=== PATIENT | female | born 1985 | race Two or more races ===

== ENCOUNTER 2018-06-11 23:38 | Inpatient (IN) | payer OTHER ==
[2018-06-12 00:03] VITALS: BMI 18.1
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
[2018-06-12] MEDS ORDERED: NICOTINE POLACRILEX 2 MG GUM BC PRN (00:21)
[2018-06-12] MEDS ORDERED: P-EPHED 60MG/TRIPROLIDI 2.5MG TABLET PO PRN (00:21)
[2018-06-12] MEDS ORDERED: chlordiazePOXIDE HCL 25 MG CAPSULE PO PRN (00:21)
[2018-06-12] MEDS ORDERED: guaiFENesin/D-METHORPHAN HB 10 ML UNIT-DOSE CUPS PO PRN (00:21)
[2018-06-12] MEDS ORDERED: LOPERAMIDE HCL 2 MG CAPSULE PO PRN (00:21)
[2018-06-12] MEDS ORDERED: IBUPROFEN 400 MG TABLET (FP) PO PRN (00:21)
[2018-06-12] MEDS ORDERED: MENTHOL/PHENOL 1 EACH UD MM PRN (00:21)
[2018-06-12] MEDS ORDERED: ACETAMINOPHEN 325 MG TABLET (FP) PO PRN (00:21)
[2018-06-12] MEDS ORDERED: MAG HYDROX/AL HYDROX/SIMETH 30 ML UNIT-DOSE CUP PO PRN (00:21)
[2018-06-12] MEDS ORDERED: MAGNESIUM HYDROX 2400MG/30ML ORAL SUSPENSION 30 ML CUP PO PRN (00:21)
[2018-06-12] MEDS ORDERED: MAGNESIUM CITRATE 300 ML BOTTLE PO PRN (00:21)
[2018-06-12] MEDS: chlordiazePOXIDE HCL 25 MG CAPSULE PO SCH ×4 (05:24→22:12)
--- NOTE | 2018-06-12 07:48 | CONSULT ---
[facility] Psychiatric Consult - Data Date of interview: 06/12/18 Admission source: [facility] Identifying data: 32 Y.O. FEMALE WITH HX/O ALCOHOLISM SINCE THE AGE OF 22 HEAR FOR DETOX. CLIENT REPORTS THIS HER FIRST ATTEMPT TO INPATIENT TXMENT AFTER FAILED ATTEMPTS TO SELF DETOX. LAST ATTEMPT BEING 11 MONTHS AGO. REPORTS LONGEST CLEAN TIME 42 DAYS Jul. SHE WAS REFERRED BY [facility] AFTER PRESENTING THERE FOR A [facility] REHAB. SHE PRESENTS WITH C/O WITHDRAWAL SX'S; CIWA 15. DENIES HX/O SEIZURES, AVH, SI/HI. DOES REPORTS HX/O BLACKOUTS. UTOX + TADEO, THC, BAR CLIENT DENIES USE. STATES IT WAS A ONE TIME THING RECENTLY AT A [employer] WITH "JOHANNA". PMHX- GERD Substance Abuse History: - Smoking Cessation. Smoking history: Current every day smoker. Have you smoked in the past 12 months: Yes. Aproximately how many cigarettes per day: 10. Cigars Per Day: 0. Hx Chewing Tobacco Use: No. Initiated information on smoking cessation: Yes. 'Breaking Loose' booklet given : 06/12/18. - Substance & Tx. History. Hx Alcohol Use: Yes. Hx Substance Use : Yes. Substance Use Type: Alcohol. Hx Substance Use Treatment: No. - Substances Abused. COGNAC. Route: Oral. Frequency: Daily. Amount used: 1 LITER TO A GALLON. Age of first use: 22. Date of Last Use: 06/10/18 Medical History: GERD Psychiatric History: Patent reports no psychiatric hospitalization history, homhisturyt of sucidal,julissa,icidalideations., no psychiatrioric medicstions taking prior to admission. Physical/Sexual Abuse/Trauma History: Denies Additional Comment: Observation Mental Status Exam - Mental Status Exam Alert and Oriented to: Person Cognitive Function: Fair Patient Appearance: Unkempt Mood: Sad Affect: Normal Range Patient Behavior: Cooperative Speech Pattern: Appropriate Voice Loudness: Normal Thought Process: Goal Oriented Thought Disorder: Being Controlled Hallucinations: Denies Suicidal Ideation: Denies Homicidal Ideation: Denies Insight/Judgement: Fair Sleep: Difficulty falling asleep Appetite: Fair Muscle strength/Tone: Mild Hypotonicity Gait/Station: Normal Additional Comments: Observation. Detox Unit Care Protocol Psychiatric Findings - Problem List ([place] 1, 2,3) (1) Alcohol dependence with uncomplicated withdrawal Current Visit: Yes Status: Acute (2) GERD (gastroesophageal reflux disease) Current Visit: Yes Status: Chronic Qualifiers: Esophagitis presence: esophagitis presence not specified Qualified Code(s) : K21.9 - Gastro-esophageal reflux disease without esophagitis (3) History of depression Current Visit: Yes Status: Chronic (4) Nicotine dependence Current Visit: Yes Status: Chronic Qualifiers: Nicotine product type: cigarettes Substance use status: uncomplicated Qualified Code(s): F17.210 - Nicotine dependence, cigarettes, uncomplicated (5) Substance induced mood disorder Current Visit: Yes Status: Suspected - Initial Treatment Plan Initial Treatment Plan: Observation. Detox Unit Care Protocol
--- NOTE | 2018-06-12 10:13 | PN ---
[facility] CIWA - CIWA Score Nausea/Vomitin Muscle Tremors: 1-None Visible, but [place] Anxiety: 1-Mildly Anxious Agitation: 1-Slight > Activity Paroxysmal Sweats: 1-Minimal Palms Moist Orientation: 0-Oriented Tacttile Disturbances: 0-None Auditory Disturbances: 0-None Visual Disturbances: 0-None Headache: 0-None Present CIWA-Ar Total Score: 6 BHS Progress Note (SOAP) Subjective: Pt states her "stomach feels sour" Obj: Vital Signs - 24 hr 06/11/18 06/12/18 06/12/18 23:57 00:40 03:52 Temperature 98.1 F 98.4 F Pulse Rate 98 H 80 Respiratory 18 16 18 Rate Blood Pressure 126/81 94/74 06/12/18 06/12/18 06:00 09:55 Temperature 97.9 F 98.1 F Pulse Rate 74 86 Respiratory 16 16 Rate Blood Pressure 113/73 101/57 L a/p: alcohol use disorder, continue detox protocol, d/w pt options for prn meds if needed for withdrawal Sx
[2018-06-12 10:15] LABS: HEMATOCRIT 42.5 % (32.4-45.2); HEMOGLOBIN 13.8 GM/dL (10.7-15.3); MCH 32.7 pg (25.7-33.7); MCHC 32.5 g/dl (32.0-36.0); MEAN CELL VOLUME 100.6 fl (80-96); MEAN PLT VOLUME 8.1 fl (7.5-11.1); PLATELET COUNT 281 K/MM3 (134-434); RBC 4.23 M/mm3 (3.60-5.2); RDW 13.1 % (11.6-15.6); WHITE BLOOD COUNT 8.1 K/mm3 (4.0-10.0)
[2018-06-12 10:22] LABS: ALBUMIN 3.2 g/dl (3.4-5.0); ALK PHOS 73 U/L (45-117); ANION GAP 9 MMOL/L (8-16); BILIRUBIN,TOTAL 0.8 mg/dL (0.2-1); BLOOD UREA NITROGEN 6 mg/dL (7-18); CALCIUM 8.2 mg/dL (8.5-10.1); CHLORIDE 103 mmol/L (98-107); CO2 27 mmol/L (21-32); CREATININE 0.5 mg/dL (0.55-1.3); GLUCOSE,RANDOM 100 mg/dL (74-106); POTASSIUM 3.5 mmol/L (3.5-5.1); SGOT/AST 16 U/L (15-37); SGPT/ALT 21 U/L (13-61); SODIUM 139 mmol/L (136-145); TOT PROT 6.5 g/dl (6.4-8.2)
[2018-06-12] MEDS: PRENATAL VITAMINS W/ FOLIC ACID TABLET (FP) PO SCH (10:29)
[2018-06-12] MEDS: NICOTINE 14 MG/24 HOURS TOPICAL PATCH TD SCH (10:30)
--- NOTE | 2018-06-12 11:38 | EKG ---
Test Reason : Blood Pressure : / mmHG Vent. Rate : 076 BPM Atrial Rate : 083 BPM P-R Int : 112 ms QRS Dur : 086 ms QT Int : 392 ms P-R-T Axes : 062 075 044 degrees QTc Int : 441 ms NORMAL SINUS RHYTHM WITH SINUS ARRHYTHMIA NORMAL ECG NO PREVIOUS ECGS AVAILABLE Confirmed by PHANI NUNEZ, WILLIAM ([id number]) on 06/12/2018 11:37:24 AM Referred By: CAROLINE GILLILAND Confirmed By:WILLIAM JERONIMO MD
[2018-06-12] MEDS: ONDANSETRON *ODT* 4 MG TABLET SL PRN ×2 (13:13→22:13)
[2018-06-12 17:41] LABS: URINE APPEARANCE TURBID; URINE COLOR AMBER; URINE GLUCOSE (UA) NEGATIVE (NEGATIVE); URINE KETONE NEGATIVE (NEGATIVE); URINE LEUK ESTERASE NEGATIVE (NEGATIVE); URINE NITRITE NEGATIVE (NEGATIVE); URINE PROTEIN 1+ (NEGATIVE); URINE UROBILINOGEN 4.0 E.U/dl mg/dL (0.2-1.0)
[2018-06-12 17:45] LABS: EPI CELLS MANY /HPF (FEW); URINE BACTERIA RARE /hpf (NONE SEEN); URINE MUCUS MANY
[2018-06-12] MEDS ORDERED: MELATONIN 5 MG TABLETS PO PRN (22:00)
[2018-06-12] MEDS: THIAMINE HCL 100 MG TABLET (FP) PO SCH (22:12)
[2018-06-13] MEDS: chlordiazePOXIDE HCL 25 MG CAPSULE PO SCH ×4 (06:04→22:44)
[2018-06-13] MEDS: PRENATAL VITAMINS W/ FOLIC ACID TABLET (FP) PO SCH (10:43)
[2018-06-13] MEDS: NICOTINE 14 MG/24 HOURS TOPICAL PATCH TD SCH (10:43)
[2018-06-13] MEDS: ONDANSETRON *ODT* 4 MG TABLET SL PRN ×2 (10:44→20:45)
[2018-06-13] MEDS ORDERED: valACYclovir HCL 500 MG TABLET (FP) PO ONE (12:01)
--- NOTE | 2018-06-13 12:01 | PN ---
[facility] CIWA - CIWA Score Nausea/Vomitin-Mild Nausea/No Vomiting Muscle Tremors: 3 Anxiety: 2 Agitation: 2 Paroxysmal Sweats: 1-Minimal Palms Moist Orientation: 0-Oriented Tacttile Disturbances: 0-None Auditory Disturbances: 0-None Visual Disturbances: 0-None Headache: 0-None Present CIWA-Ar Total Score: 9 S Progress Note (SOAP) Subjective: i have am having an outbreak on my lower lip, it stings and is painful sweats nausea Objective: 06/13/18 12:01 Vital Signs Temperature 98.1 F 06/13/18 09:39 Pulse Rate 108 H 06/13/18 09:39 Respiratory Rate 18 06/13/18 09:39 Blood Pressure 100/77 06/13/18 09:39 O2 Sat by Pulse Oximetry (%) Laboratory Tests 06/12/18 06/12/18 06/12/18 07:00 07:00 07:00 WBC 8.1 RBC 4.23 Hgb 13.8 Hct 42.5 MCV 100.6 H MCH 32.7 MCHC 32.5 RDW 13.1 Plt Count 281 MPV 8.1 Sodium 139 Potassium 3.5 Chloride 103 Carbon Dioxide 27 Anion Gap 9 BUN 6 L Creatinine 0.5 L Creat Clearance w eGFR > 60 Random Glucose 100 Calcium 8.2 L Total Bilirubin 0.8 AST 16 ALT 21 Alkaline Phosphatase 73 Total Protein 6.5 Albumin 3.2 L Urine Color Urine Appearance Urine pH Ur Specific [place] Urine Protein Urine Glucose (UA) Urine Ketones Urine Blood Urine Nitrite Urine Bilirubin Urine Urobilinogen Ur Leukocyte Esterase Urine WBC (Auto) Urine RBC (Auto) Ur Epithelial Cells Urine Bacteria Urine Mucus RPR Titer Nonreactive 06/12/18 13:40 WBC RBC Hgb Hct MCV MCH MCHC RDW Plt Count MPV Sodium Potassium Chloride Carbon Dioxide Anion Gap BUN Creatinine Creat Clearance w eGFR Random Glucose Calcium Total Bilirubin AST ALT Alkaline Phosphatase Total Protein Albumin Urine Color [place] Urine Appearance Turbid Urine pH 8.0 Ur Specific [place] 1.023 Urine Protein 1+ H Urine Glucose (UA) Negative Urine Ketones Negative Urine Blood Negative Urine Nitrite Negative Urine Bilirubin 2.0 Urine Urobilinogen 4.0 e.u/dl H Ur Leukocyte Esterase Negative Urine WBC (Auto) 18 Urine RBC (Auto) 2 Ur Epithelial Cells Many Urine Bacteria Rare Urine Mucus Many RPR Titer aaox3 ambulating no acute distress Assessment: 11/15/18 12:01 withdrawal sx visible cold sore noted to lower lip Plan: continue detox increase fluids valtrex 1000mg x one then 500mg bid x 3 days ordered
[2018-06-13] MEDS: THIAMINE HCL 100 MG TABLET (FP) PO SCH (22:44)
[2018-06-13] MEDS: valACYclovir HCL 500 MG TABLET (FP) PO SCH (22:44)
[2018-06-14] MEDS: chlordiazePOXIDE 5 MG CAPSULE PO SCH ×3 (06:16→18:05)
[2018-06-14] MEDS: ONDANSETRON *ODT* 4 MG TABLET SL PRN ×2 (06:18→15:29)
[2018-06-14] MEDS: PRENATAL VITAMINS W/ FOLIC ACID TABLET (FP) PO SCH (10:43)
[2018-06-14] MEDS: valACYclovir HCL 500 MG TABLET (FP) PO SCH (10:43)
[2018-06-14] MEDS: NICOTINE 14 MG/24 HOURS TOPICAL PATCH TD SCH (10:45)
[2018-06-14] MEDS ORDERED: COLLOIDAL OATMEAL 1 BAR EACH TP PRN (12:11)
--- NOTE | 2018-06-14 12:20 | PN ---
[facility] Progress Note (SOAP) Subjective: agitation sweats interrupted sleep dry skin Objective: 06/14/18 12:20 Vital Signs Temperature 97.9 F 06/14/18 09:44 Pulse Rate 99 H 06/14/18 09:44 Respiratory Rate 16 06/14/18 09:44 Blood Pressure 104/64 06/14/18 09:44 O2 Sat by Pulse Oximetry (%) aaox3 ambulating no acute distress Assessment: 06/14/18 12:27 withdrawal sx Plan: continue detox increase fluids d/c in am
--- NOTE | 2018-06-14 15:50 | PN ---
[facility] Progress Note Note: pt has a rehab bed in [facility]. pt will be d/c today. no s/s of withdrawal noted.
--- NOTE | 2018-06-14 15:52 | DS ---
[facility] Detox Discharge Summary Admission Date: 06/12/18 Discharge Date: 06/14/18 - History Present History: Alcohol Dependence - Physical Exam Results Vital Signs: Vital Signs Temperature 97.9 F 06/14/18 14:03 Pulse Rate 89 06/14/18 14:03 Respiratory Rate 16 06/14/18 14:03 Blood Pressure 111/76 06/14/18 14:03 O2 Sat by Pulse Oximetry (%) - Treatment Hospital Course: Detox Protocol Followed, Detoxed Safely, Responded well, Discharged Condition Good, Rehab Referral Accepted - Medication Discharge Medications: Ambulatory Orders NK [No Known Home Medication] 06/12/18 - Diagnosis (1) Alcohol dependence with uncomplicated withdrawal Current Visit: Yes Status: Chronic (2) At risk for dehydration due to poor fluid intake Current Visit: Yes Status: Acute (3) GERD (gastroesophageal reflux disease) Current Visit: Yes Status: Chronic Qualifiers: Esophagitis presence: esophagitis presence not specified Qualified Code(s) : K21.9 - Gastro-esophageal reflux disease without esophagitis (4) History of depression Current Visit: Yes Status: Chronic (5) Nicotine dependence Current Visit: Yes Status: Chronic Qualifiers: Nicotine product type: cigarettes Substance use status: uncomplicated Qualified Code(s): F17.210 - Nicotine dependence, cigarettes, uncomplicated (6) Substance induced mood disorder Current Visit: Yes Status: Suspected - AMA Did Patient Leave Against Medical Advice: No (referred to [facility])
[2018-06-14 16:37] VITALS: BP 121/80; PULSE 105; TEMP 97
[2018-06-15] MEDS ORDERED: chlordiazePOXIDE HCL 10 MG CAPSULE PO SCH (05:00)
== END 2018-06-14 18:07 | disposition other institution (70) | DRG 775 ==
LOC: YASAS 23:38 → Y6N 06-12 00:10
PROC: HZ2ZZZZ Detoxification Services for Substance Abuse Treatment (ICD-10-PCS; principal; 2018-06-12)
DX: F10.230 Alcohol dependence with withdrawal, uncomplicated (principal); F17.210 Nicotine dependence, cigarettes, uncomplicated; F19.24 Other psychoactive substance dependence with psychoactive substance-induced mood disorder; K21.9 Gastro-esophageal reflux disease without esophagitis; Z91.89 Other specified personal risk factors, not elsewhere classified; Z86.59 Personal history of other mental and behavioral disorders
CPT/HCPCS: 36415; 80053; 81003; 81015; 85027; 86593; 93005; 93010; Q0162

== ENCOUNTER 2018-06-14 16:26 | Inpatient (IN) | payer OTHER ==
--- NOTE | 2018-06-14 21:40 | HP ---
[facility] Rehab Assess/Revision - Admission History Admitted to Rehab from: [facility] Date of Admission to Rehab: 06/14/2018 - Vital signs Vital Signs: Vital Signs Temperature 97.0 F L 06/14/18 16:37 Pulse Rate 105 H 06/14/18 16:37 Respiratory Rate 18 06/14/18 16:37 Blood Pressure 121/80 06/14/18 16:37 O2 Sat by Pulse Oximetry (%) - Findings Detox History & Physical reviewed: Yes Concur with findings: Yes Inpatient Rehab Admission - Initial Determination Are CD services needed?: Yes Free of communicable disease: Yes Not in need of hospitalization: Yes - Rehab Admission Criteria Previous failed treatment: Yes Poor recovery environment: Yes Comorbidities: Yes Lacks judgement: No Patient is meeting Inpatient Rehab admission criteria:: Yes
[2018-06-14] MEDS ORDERED: LOPERAMIDE HCL 2 MG CAPSULE PO PRN (21:41)
[2018-06-14] MEDS ORDERED: ACETAMINOPHEN 325 MG TABLET (FP) PO PRN (21:41)
[2018-06-14] MEDS ORDERED: MAGNESIUM HYDROX 2400MG/30ML ORAL SUSPENSION 30 ML CUP PO PRN (21:41)
[2018-06-14] MEDS ORDERED: MENTHOL/PHENOL 1 EACH UD MM PRN (21:41)
[2018-06-14] MEDS ORDERED: MAGNESIUM CITRATE 300 ML BOTTLE PO PRN (21:41)
[2018-06-14] MEDS ORDERED: MELATONIN 5 MG TABLETS PO PRN (22:00)
[2018-06-14] MEDS: THIAMINE HCL 100 MG TABLET (FP) PO SCH (22:54)
[2018-06-14] MEDS: valACYclovir HCL 500 MG TABLET (FP) PO SCH (22:54)
[2018-06-15] MEDS: valACYclovir HCL 500 MG TABLET (FP) PO SCH ×2 (10:24→22:33)
[2018-06-15] MEDS: NICOTINE 7 MG/24 HOURS TOPICAL PATCH TD SCH (10:24)
[2018-06-15] MEDS: PRENATAL VITAMINS W/ FOLIC ACID TABLET (FP) PO SCH (10:25)
[2018-06-15] MEDS: hydrOXYzine PAMOATE 50 MG CAPSULE (FP) PO PRN ×2 (10:26→16:44)
[2018-06-15] MEDS ORDERED: ONDANSETRON *ODT* 4 MG TABLET SL ONE (12:39)
[2018-06-15] MEDS: THIAMINE HCL 100 MG TABLET (FP) PO SCH (22:33)
[2018-06-16] MEDS: hydrOXYzine PAMOATE 50 MG CAPSULE (FP) PO PRN (06:35)
[2018-06-16] MEDS: PRENATAL VITAMINS W/ FOLIC ACID TABLET (FP) PO SCH (09:49)
[2018-06-16] MEDS: NICOTINE 7 MG/24 HOURS TOPICAL PATCH TD SCH (09:49)
[2018-06-16] MEDS: valACYclovir HCL 500 MG TABLET (FP) PO SCH ×2 (09:49→22:11)
[2018-06-16] MEDS: MAG HYDROX/AL HYDROX/SIMETH 30 ML UNIT-DOSE CUP PO PRN (12:07)
[2018-06-16] MEDS: THIAMINE HCL 100 MG TABLET (FP) PO SCH (22:11)
[2018-06-16] MEDS: PANTOPRAZOLE 20 MG TABLET (FP) PO SCH (22:11)
[2018-06-17] MEDS: valACYclovir HCL 500 MG TABLET (FP) PO SCH ×2 (10:41→22:21)
[2018-06-17] MEDS: PRENATAL VITAMINS W/ FOLIC ACID TABLET (FP) PO SCH (10:41)
[2018-06-17] MEDS: NICOTINE 7 MG/24 HOURS TOPICAL PATCH TD SCH (10:42)
[2018-06-17] MEDS: PANTOPRAZOLE 20 MG TABLET (FP) PO SCH ×2 (10:42→22:21)
[2018-06-17] MEDS: NICOTINE POLACRILEX 2 MG GUM BUC PRN (10:44)
[2018-06-17] MEDS: hydrOXYzine PAMOATE 50 MG CAPSULE (FP) PO PRN ×2 (12:03→22:21)
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
[2018-06-17] MEDS: MAG HYDROX/AL HYDROX/SIMETH 30 ML UNIT-DOSE CUP PO PRN (17:48)
[2018-06-17] MEDS ORDERED: MELATONIN 5 MG TABLETS PO PRN (22:00)
[2018-06-17] MEDS: THIAMINE HCL 100 MG TABLET (FP) PO SCH (22:20)
[2018-06-17] MEDS: MELATONIN 3 MG, MELATONIN 5 MG PO SCH (22:21)
[2018-06-18] MEDS: hydrOXYzine PAMOATE 50 MG CAPSULE (FP) PO PRN (10:25)
[2018-06-18] MEDS: PANTOPRAZOLE 20 MG TABLET (FP) PO SCH ×2 (10:25→22:25)
[2018-06-18] MEDS: valACYclovir HCL 500 MG TABLET (FP) PO SCH ×2 (10:25→22:25)
[2018-06-18] MEDS: NICOTINE POLACRILEX 2 MG GUM BUC PRN ×3 (10:25→22:27)
[2018-06-18] MEDS: NICOTINE 7 MG/24 HOURS TOPICAL PATCH TD SCH (10:25)
[2018-06-18] MEDS: PRENATAL VITAMINS W/ FOLIC ACID TABLET (FP) PO SCH (10:25)
[2018-06-18] MEDS: THIAMINE HCL 100 MG TABLET (FP) PO SCH (22:25)
[2018-06-18] MEDS: MELATONIN 3 MG, MELATONIN 5 MG PO SCH (22:26)
[2018-06-19] MEDS: NICOTINE POLACRILEX 2 MG GUM BUC PRN ×3 (09:01→21:59)
[2018-06-19] MEDS: PRENATAL VITAMINS W/ FOLIC ACID TABLET (FP) PO SCH (10:17)
[2018-06-19] MEDS: NICOTINE 7 MG/24 HOURS TOPICAL PATCH TD SCH (10:17)
[2018-06-19] MEDS: PANTOPRAZOLE 20 MG TABLET (FP) PO SCH ×2 (10:17→21:57)
[2018-06-19] MEDS: valACYclovir HCL 500 MG TABLET (FP) PO SCH ×2 (10:18→21:57)
[2018-06-19] MEDS: hydrOXYzine PAMOATE 50 MG CAPSULE (FP) PO PRN ×3 (10:19→21:58)
[2018-06-19] MEDS ORDERED: PT OWN MED DRAWER 7, Y5N ONE (10:50)
[2018-06-19] MEDS: THIAMINE HCL 100 MG TABLET (FP) PO SCH (21:57)
[2018-06-19] MEDS: MELATONIN 3 MG, MELATONIN 5 MG PO SCH (21:57)
[2018-06-20] MEDS: PRENATAL VITAMINS W/ FOLIC ACID TABLET (FP) PO SCH (10:24)
[2018-06-20] MEDS: PANTOPRAZOLE 20 MG TABLET (FP) PO SCH ×2 (10:24→22:21)
[2018-06-20] MEDS: NICOTINE 7 MG/24 HOURS TOPICAL PATCH TD SCH (10:24)
[2018-06-20] MEDS: hydrOXYzine PAMOATE 50 MG CAPSULE (FP) PO PRN ×2 (10:26→22:21)
[2018-06-20] MEDS: NICOTINE POLACRILEX 2 MG GUM BUC PRN ×2 (18:02→22:22)
[2018-06-20] MEDS: MELATONIN 3 MG, MELATONIN 5 MG PO SCH (22:20)
[2018-06-20] MEDS: THIAMINE HCL 100 MG TABLET (FP) PO SCH (22:22)
[2018-06-21] MEDS: hydrOXYzine PAMOATE 50 MG CAPSULE (FP) PO PRN ×2 (10:21→21:55)
[2018-06-21] MEDS: PANTOPRAZOLE 20 MG TABLET (FP) PO SCH ×2 (10:21→21:55)
[2018-06-21] MEDS: NICOTINE 7 MG/24 HOURS TOPICAL PATCH TD SCH (10:21)
[2018-06-21] MEDS: PRENATAL VITAMINS W/ FOLIC ACID TABLET (FP) PO SCH (10:21)
[2018-06-21] MEDS: NICOTINE POLACRILEX 2 MG GUM BUC PRN ×2 (10:24→21:57)
[2018-06-21] MEDS ORDERED: PT OWN MED DRAWER 7, Y5N ONE (20:31)
[2018-06-21] MEDS: MELATONIN 3 MG, MELATONIN 5 MG PO SCH (21:55)
[2018-06-21] MEDS: THIAMINE HCL 100 MG TABLET (FP) PO SCH (21:55)
[2018-06-22] MEDS: hydrOXYzine PAMOATE 50 MG CAPSULE (FP) PO PRN ×2 (10:26→22:01)
[2018-06-22] MEDS: PRENATAL VITAMINS W/ FOLIC ACID TABLET (FP) PO SCH (10:26)
[2018-06-22] MEDS: PANTOPRAZOLE 20 MG TABLET (FP) PO SCH ×2 (10:27→22:01)
[2018-06-22] MEDS: NICOTINE 7 MG/24 HOURS TOPICAL PATCH TD SCH (10:27)
[2018-06-22] MEDS: NICOTINE POLACRILEX 2 MG GUM BUC PRN ×2 (10:27→15:51)
[2018-06-22] MEDS: MELATONIN 3 MG, MELATONIN 5 MG PO SCH (22:01)
[2018-06-22] MEDS ORDERED: PT OWN MED DRAWER 7, Y5N ONE (22:01)
[2018-06-22] MEDS: THIAMINE HCL 100 MG TABLET (FP) PO SCH (22:01)
[2018-06-23] MEDS: PRENATAL VITAMINS W/ FOLIC ACID TABLET (FP) PO SCH (10:28)
[2018-06-23] MEDS: PANTOPRAZOLE 20 MG TABLET (FP) PO SCH ×2 (10:28→21:48)
[2018-06-23] MEDS: NICOTINE 7 MG/24 HOURS TOPICAL PATCH TD SCH (10:28)
[2018-06-23] MEDS: hydrOXYzine PAMOATE 50 MG CAPSULE (FP) PO PRN ×2 (10:30→21:47)
[2018-06-23] MEDS ORDERED: PT OWN MED DRAWER 7, Y5N ONE (19:56)
[2018-06-23] MEDS: THIAMINE HCL 100 MG TABLET (FP) PO SCH (21:47)
[2018-06-23] MEDS: MELATONIN 3 MG, MELATONIN 5 MG PO SCH (21:47)
[2018-06-23] MEDS: NICOTINE POLACRILEX 2 MG GUM BUC PRN (21:50)
[2018-06-24] MEDS: PRENATAL VITAMINS W/ FOLIC ACID TABLET (FP) PO SCH (11:07)
[2018-06-24] MEDS: PANTOPRAZOLE 20 MG TABLET (FP) PO SCH ×2 (11:07→21:21)
[2018-06-24] MEDS: NICOTINE 7 MG/24 HOURS TOPICAL PATCH TD SCH (11:07)
[2018-06-24] MEDS: NICOTINE POLACRILEX 2 MG GUM BUC PRN (11:07)
[2018-06-24] MEDS: hydrOXYzine PAMOATE 50 MG CAPSULE (FP) PO PRN ×2 (12:19→21:22)
[2018-06-24] MEDS: THIAMINE HCL 100 MG TABLET (FP) PO SCH (21:21)
[2018-06-24] MEDS: MELATONIN 3 MG, MELATONIN 5 MG PO SCH (21:21)
[2018-06-25] MEDS ORDERED: COLLOIDAL OATMEAL 1 BAR EACH TP PRN (09:30)
[2018-06-25] MEDS: hydrOXYzine PAMOATE 50 MG CAPSULE (FP) PO PRN ×2 (10:08→21:39)
[2018-06-25] MEDS: PRENATAL VITAMINS W/ FOLIC ACID TABLET (FP) PO SCH (10:08)
[2018-06-25] MEDS: NICOTINE POLACRILEX 2 MG GUM BUC PRN (10:09)
[2018-06-25] MEDS: PANTOPRAZOLE 20 MG TABLET (FP) PO SCH ×2 (10:09→21:39)
[2018-06-25] MEDS: NICOTINE 7 MG/24 HOURS TOPICAL PATCH TD SCH (10:10)
[2018-06-25] MEDS ORDERED: PT OWN MED DRAWER 7, Y5N ONE ×2 (20:19→22:24)
[2018-06-25] MEDS: THIAMINE HCL 100 MG TABLET (FP) PO SCH (21:39)
[2018-06-25] MEDS: MELATONIN 3 MG, MELATONIN 5 MG PO SCH (21:40)
[2018-06-26] MEDS: NICOTINE 7 MG/24 HOURS TOPICAL PATCH TD SCH (10:32)
[2018-06-26] MEDS: PRENATAL VITAMINS W/ FOLIC ACID TABLET (FP) PO SCH (10:32)
[2018-06-26] MEDS: hydrOXYzine PAMOATE 50 MG CAPSULE (FP) PO PRN ×2 (10:32→22:04)
[2018-06-26] MEDS: PANTOPRAZOLE 20 MG TABLET (FP) PO SCH ×2 (10:33→22:03)
[2018-06-26] MEDS: NICOTINE POLACRILEX 2 MG GUM BUC PRN (10:34)
[2018-06-26] MEDS ORDERED: PT OWN MED DRAWER 7, Y5N ONE (20:27)
[2018-06-26] MEDS: MELATONIN 3 MG, MELATONIN 5 MG PO SCH (22:03)
[2018-06-26] MEDS: THIAMINE HCL 100 MG TABLET (FP) PO SCH (22:03)
[2018-06-27] MEDS: PANTOPRAZOLE 20 MG TABLET (FP) PO SCH ×2 (10:01→22:11)
[2018-06-27] MEDS: NICOTINE POLACRILEX 2 MG GUM BUC PRN (10:01)
[2018-06-27] MEDS: NICOTINE 7 MG/24 HOURS TOPICAL PATCH TD SCH (10:01)
[2018-06-27] MEDS: PRENATAL VITAMINS W/ FOLIC ACID TABLET (FP) PO SCH (10:01)
[2018-06-27] MEDS: hydrOXYzine PAMOATE 50 MG CAPSULE (FP) PO PRN ×2 (10:01→22:09)
[2018-06-27] MEDS ORDERED: PT OWN MED DRAWER 7, Y5N ONE ×2 (10:45→19:42)
[2018-06-27] MEDS: MELATONIN 3 MG, MELATONIN 5 MG PO SCH (22:09)
[2018-06-27] MEDS: THIAMINE HCL 100 MG TABLET (FP) PO SCH (22:09)
[2018-06-28] MEDS: PANTOPRAZOLE 20 MG TABLET (FP) PO SCH ×2 (10:14→21:35)
[2018-06-28] MEDS: NICOTINE 7 MG/24 HOURS TOPICAL PATCH TD SCH (10:14)
[2018-06-28] MEDS: PRENATAL VITAMINS W/ FOLIC ACID TABLET (FP) PO SCH (10:14)
[2018-06-28] MEDS: hydrOXYzine PAMOATE 50 MG CAPSULE (FP) PO PRN ×2 (10:15→21:35)
[2018-06-28] MEDS ORDERED: PT OWN MED DRAWER 7, Y5N ONE (10:53)
[2018-06-28] MEDS: THIAMINE HCL 100 MG TABLET (FP) PO SCH (21:35)
[2018-06-28] MEDS: MELATONIN 3 MG, MELATONIN 5 MG PO SCH (21:36)
[2018-06-29] MEDS: PRENATAL VITAMINS W/ FOLIC ACID TABLET (FP) PO SCH (10:07)
[2018-06-29] MEDS: PANTOPRAZOLE 20 MG TABLET (FP) PO SCH ×2 (10:07→22:19)
[2018-06-29] MEDS: NICOTINE 7 MG/24 HOURS TOPICAL PATCH TD SCH (10:07)
[2018-06-29] MEDS: IBUPROFEN 400 MG TABLET (FP) PO PRN ×2 (16:27→22:23)
[2018-06-29] MEDS: THIAMINE HCL 100 MG TABLET (FP) PO SCH (22:18)
[2018-06-29] MEDS: hydrOXYzine PAMOATE 50 MG CAPSULE (FP) PO PRN (22:22)
[2018-06-29] MEDS: NICOTINE POLACRILEX 2 MG GUM BUC PRN (22:22)
[2018-06-29] MEDS: MELATONIN 3 MG, MELATONIN 5 MG PO SCH (23:22)
[2018-06-30] MEDS ORDERED: MELATONIN 5 MG TABLETS PO PRN (07:17)
--- NOTE | 2018-06-30 07:19 | PN ---
[facility] Progress Note Note: Patient complains of sleeping poorly despite taking Melatonin 8 mg at bedtime. Will increase Melatonin dosage to 10 mg po HS prn for insomnia
--- NOTE | 2018-06-30 08:14 | PN ---
Psychiatric Progress Note Date of Session: 06/30/18 Chief Complaint:: Discharge Note HPI: Patient addressing Alcohol Dependence comorbid with Nicotine Dependence, Substance-Induced Mood Disorder and Substance-Induced Sleep Disorder ROS: GERD Current Medications: Active Medications Generic Name Dose Route Start Last Admin Trade Name Freq PRN Reason Stop Dose Admin Acetaminophen 650 mg 06/14/18 21:41 Tylenol - PO Q4H PRN FEVER Al Hydroxide/Mg Hydroxide 30 ml 06/14/18 21:41 06/17/18 17:48 Mylanta Oral Suspension - PO 30 ml Q6H PRN Administration DYSPEPSIA Eucalyptus/Menthol/Phenol/Sorbitol 1 each 06/14/18 21:41 Cepastat Lozenge - MM Q4H PRN SORE THROAT Hydroxyzine Pamoate 50 mg 06/14/18 21:41 06/29/18 22:22 Vistaril - PO 50 mg Q4H PRN Administration AGITATION Ibuprofen 400 mg 06/14/18 21:41 06/29/18 22:23 Motrin - PO 400 mg Q6H PRN Administration Pain Level 4-6 Loperamide HCl 4 mg 06/14/18 21:41 Imodium - PO Q6H PRN DIARRHEA Magnesium Citrate 300 ml 06/14/18 21:41 Citroma - PO Q48H PRN CONSTIPATION Magnesium Hydroxide 30 ml 06/14/18 21:41 Milk Of Magnesia - PO DAILY PRN CONSTIPATION Melatonin 10 mg 06/30/18 07:17 Melatonin PO HS PRN INSOMNIA Nicotine 7 mg 06/15/18 10:00 06/29/18 10:07 Nicoderm Patch - TD 7 mg DAILY BAILEY Administration Nicotine Polacrilex 2 mg 06/14/18 21:41 06/29/18 22:22 Nicorette Gum - BUC 2 mg Q2H PRN Administration NICOTINE REPLACEMENT RX Pantoprazole Sodium 20 mg 06/16/18 22:00 06/29/18 22:19 Protonix - PO 20 mg BID BAILEY Administration Multivit/Folic Acid/Iron 1 tab 06/15/18 10:00 06/29/18 10:07 Vitamins ([facility]) - PO 1 tab DAILY BAILEY Administration Thiamine HCl 100 mg 06/14/18 22:00 06/29/18 22:18 Vitamin B1 - PO 100 mg HS BAILEY Administration Current Side Effect: No Lab tests ordered: Yes Lab tests reviewed: Yes Provider note:: Patient will complete this program on 07/01/18. She has met her treatment goals and will continue to address her issues in outpatient treatment at [facility] at [address] [place] [address]. Told justowriter operator that from her participation in this program, she has learned to identify her triggers and better ways to control her anger. She is stable for discharge on Total face to face time:: 35 Mental Status Exam - Mental Status Exam Alert and Oriented to: Time, Place, Person Cognitive Function: Fair Patient Appearance: Well Groomed Mood: Hopeful, Euthymic Affect: Appropriate Patient Behavior: Cooperative Speech Pattern: Clear Voice Loudness: Normal Thought Process: Intact, Goal Oriented Thought Disorder: Not Present Hallucinations: Denies Suicidal Ideation: Denies Homicidal Ideation: Denies Insight/Judgement: Fair Sleep: Fair Appetite: Good Muscle strength/Tone: Normal Gait/Station: Normal Psychiatric Treatment Plan - Problem List (1) Alcohol dependence Current Visit: Yes (2) Nicotine dependence Current Visit: No Qualifiers: Nicotine product type: cigarettes Substance use status: uncomplicated Qualified Code(s): F17.210 - Nicotine dependence, cigarettes, uncomplicated (3) Substance induced mood disorder Current Visit: No (4) Substance-induced sleep disorder Current Visit: Yes (5) GERD (gastroesophageal reflux disease) Current Visit: Yes Initial treatment plan: Patient will be discharged tomorrow and referred to the [facility] in [place] for outpatient treatment
[2018-06-30] MEDS: PRENATAL VITAMINS W/ FOLIC ACID TABLET (FP) PO SCH (10:07)
[2018-06-30] MEDS: NICOTINE 7 MG/24 HOURS TOPICAL PATCH TD SCH (10:07)
[2018-06-30] MEDS: PANTOPRAZOLE 20 MG TABLET (FP) PO SCH ×2 (10:07→21:27)
[2018-06-30] MEDS: IBUPROFEN 400 MG TABLET (FP) PO PRN ×2 (10:08→21:30)
[2018-06-30] MEDS: hydrOXYzine PAMOATE 50 MG CAPSULE (FP) PO PRN ×4 (10:08→21:28)
[2018-06-30] MEDS: NICOTINE POLACRILEX 2 MG GUM BUC PRN ×2 (10:10→18:05)
[2018-06-30] MEDS: THIAMINE HCL 100 MG TABLET (FP) PO SCH (21:27)
[2018-07-01] MEDS: hydrOXYzine PAMOATE 50 MG CAPSULE (FP) PO PRN ×3 (01:48→10:04)
[2018-07-01] MEDS: IBUPROFEN 400 MG TABLET (FP) PO PRN (05:59)
[2018-07-01] MEDS: NICOTINE POLACRILEX 2 MG GUM BUC PRN ×2 (06:00→10:04)
[2018-07-01 07:03] VITALS: BP 117/78; PULSE 76; TEMP 97.8
[2018-07-01] MEDS ORDERED: PT OWN MED DRAWER 7, Y5N ONE (09:26)
[2018-07-01] MEDS: NICOTINE 7 MG/24 HOURS TOPICAL PATCH TD SCH (10:02)
[2018-07-01] MEDS: PRENATAL VITAMINS W/ FOLIC ACID TABLET (FP) PO SCH (10:04)
[2018-07-01] MEDS: PANTOPRAZOLE 20 MG TABLET (FP) PO SCH (10:04)
== END 2018-07-01 10:10 | disposition home or self-care (01) | DRG 772 ==
LOC: YASAS 16:26 → Y3E 18:19 → Y3W 18:41
PROVIDERS: ADMIT Psychiatry & Neurology Psychiatry; ATTEND Psychiatry & Neurology Psychiatry
PROC: HZ42ZZZ Group Counseling for Substance Abuse Treatment, Cognitive-Behavioral (ICD-10-PCS; principal; 2018-06-17)
DX: F10.20 Alcohol dependence, uncomplicated (principal); F17.210 Nicotine dependence, cigarettes, uncomplicated; F19.24 Other psychoactive substance dependence with psychoactive substance-induced mood disorder; F19.282 Other psychoactive substance dependence with psychoactive substance-induced sleep disorder; K21.9 Gastro-esophageal reflux disease without esophagitis
CPT/HCPCS: Q0162